=== PATIENT | male | born 1940 | race Caucasian/White ===

== ENCOUNTER → 2019-01-23 | Outpatient (CLI) | payer BC, MEDICARE ==
--- NOTE | 2019-01-23 13:49 | CT ---
EXAMINATION TYPE: CT chest w con DATE OF EXAM: 01/23/2019 COMPARISON: Chest x-ray 01/23/2019 from [facility] HISTORY: Mediastinal mass CT DLP: 356.30 mGycm, Automated exposure control for dose reduction was used. CONTRAST: Performed injected with 100 mL of Isovue 300. TECHNIQUE: Axial images were obtained at 5 mm thick sections. Reconstructed images are reviewed on [employer] computer in the coronal plane. FINDINGS: Portion of the thyroid visualized is normal. No suspicious lung nodules or focal infiltrates are present. There is a 1.2 cm pretracheal lymph node at the level of the aortic arch. Smaller lymphadenopathy is within the mediastinum. The ascending aorta diameter at the level of the main pulmonary artery is 3. 6 cm. The main pulmonary artery diameter at the bifurcation is 2.[address] sections are obtained through the upper abdomen. The entire stomach is herniated into the lower thoracic cavity. IMPRESSIONS: 1. Herniation of the entire stomach into the left lung base accounts for the findings on the chest x- ray from [facility]
== END ==
LOC: RADCTMAIN 11:41
PROVIDERS: ATTEND Internal Medicine Critical Care Medicine
DX: J98.59 Other diseases of mediastinum, not elsewhere classified (principal)
CPT/HCPCS: 82565; 84520; 71260; 36415; Q9967

== ENCOUNTER → 2019-06-25 | Outpatient (CLI) | payer MEDICARE ==
[2019-06-25 15:12] LABS: Basophils % (A) 1 %; Eosinophils # (A) 0.2 k/uL (0-0.7); Eosinophils % (A) 4 %; HCT 45.5 % (39.0-53.0); HGB 14.9 gm/dL (13.0-17.5); Lymphocytes # (A) 1.1 k/uL (1.0-4.8); Lymphocytes % (A) 23 %; MCH 30.4 pg (25.0-35.0); MCHC 32.8 g/dL (31.0-37.0); MCV 92.6 fL (80.0-100.0); Mean Platelet Volume 7.2; Monocytes # (A) 0.3 k/uL (0-1.0); Monocytes % (A) 7 %; Neutrophils % (A) 63 %; Platelet Count 164 k/uL (150-450); RBC 4.92 m/uL (4.30-5.90); RDW 15.1 % (11.5-15.5); WBC 4.7 k/uL (3.8-10.6)
== END | disposition home or self-care (01) ==
LOC: LABPAT 13:47
PROVIDERS: ATTEND Surgery
DX: Z01.812 Encounter for preprocedural laboratory examination (principal); Z01.818 Encounter for other preprocedural examination; K21.0 Gastro-esophageal reflux disease with esophagitis
CPT/HCPCS: 85025; 93005

== ENCOUNTER 2019-06-27 07:59 | Day surgery (SDC) | payer MEDICARE ==
[2019-06-26 11:47] VITALS: BMI 28.1
[2019-06-27] MEDS: LACTATED RINGERS 1,000 ML IV SCH ×2 (08:20→08:31)
[2019-06-27 08:25] VITALS: RESP 16; TEMP 97.3
[2019-06-27] MEDS ORDERED: LIDOCAINE 1% 20 ML VIAL (10MG/ML) FOR IV START INTRADERMA ONE (08:31)
[2019-06-27] MEDS ORDERED: PROPOFOL 10 MG/ML 20 ML VIAL IV ONE (08:56)
--- NOTE | 2019-06-27 08:57 | P.GSHP ---
History of Present Illness H&P Date: 06/27/19 Chief Complaint: GERD This a 79-year-old male who has a long-standing history of reflux and GERD. Patient has a large hiatal hernia with intrathoracic stomach. He presents today for EGD. Past Medical History Past Medical History: COPD, GERD/Reflux, Hyperlipidemia, Hypertension, Prostate Disorder Additional Past Medical History / Comment(s): intermittent difficulty with swallowing, unable to eat a full meal w/out regurgitation,hiatal hernia,hx enlarged prostate History of Any Multi-Drug Resistant Organisms: None Reported Additional Past Surgical History / Comment(s): metal chip removed from eye,nail removed from thumb Past Anesthesia/Blood Transfusion Reactions: No Reported Reaction Smoking Status: Former smoker - Past Family History Mother Family Medical History: No Reported History Sister(s) Family Medical History: Cancer Additional Family Medical History / Comment(s): lung Medications and Allergies Home Medications Medication Instructions Recorded Confirmed Type Aspirin 81 mg PO DAILY 06/26/19 06/26/19 History Atorvastatin [Lipitor] 20 mg PO DAILY 06/26/19 06/26/19 History Budesonide [Pulmicort] 0.5 mg INHALATION BID 06/26/19 06/26/19 History Calcium Carbonate/Vitamin D3 1 each PO DAILY 06/26/19 06/26/19 History [Calcium 500-Vit D3 200 Tablet] Cetirizine HCl [Zyrtec] 10 mg PO DAILY 06/26/19 06/26/19 History Felodipine ER [Plendil] 5 mg PO QAM 06/26/19 06/27/19 History Fluticasone Nasal [place] [Flonase 2 spr EA NOSTRIL DAILY 06/26/19 06/26/19 History Nasal [place]] Formoterol Fumarate [Perforomist] 20 mcg IH BID 06/26/19 06/26/19 History Ipratropium Nebulized [Atrovent 0.5 mg INHALATION BID 06/26/19 06/26/19 History Nebulized 0.2 MG/ML] Magnesium 250 mg PO DAILY 06/26/19 06/26/19 History Multivitamins, Thera [Multivitamin 1 tab PO DAILY 06/26/19 06/26/19 History (formulary)] Omeprazole [PriLOSEC] 20 mg PO DAILY 06/26/19 06/26/19 History Tamsulosin HCl [Flomax] 0.4 mg PO 1800 06/26/19 06/26/19 History Allergies Allergy/AdvReac Type Severity Reaction Status Date / Time No Known Allergies Allergy Verified 06/27/19 08:15 Surgical - Exam Vital Signs Temp Pulse Resp BP Pulse Ox 97.3 F L 74 16 140/72 93 L 06/27/19 08:24 06/27/19 08:24 06/27/19 08:24 06/27/19 08:24 06/27/19 08:24 - General well developed, well nourished, no distress - Eyes PERRL - ENT normal pinna - Neck no masses - Respiratory normal expansion - Cardiovascular Rhythm: regular - Abdomen Abdomen: soft, non tender Assessment and Plan Assessment: GERD Large hiatal hernia with intravenous stomach We'll perform EGD.
--- NOTE | 2019-06-27 09:13 | P.OP ---
Date of Procedure: 06/27/19 Preoperative Diagnosis: GERD Postoperative Diagnosis: Large hiatal hernia Antral gastritis Procedure(s) Performed: EGD Anesthesia: MAC Surgeon: Wilmer Carmona Pathology: other (Antrum) Condition: stable Disposition: PACU Description of Procedure: The patient's placed on the endoscopy table in the lateral position. He received IV sedation. The gastroscope placed oropharynx passed in the esophagus and into the stomach. The patient had a very large hiatal hernia.. The stomach was in the chest. The scope was then maneuvered into the antrum and then through the pylorus. The first portion duodenum appeared normal. Scope summer back and the antrum this above inflamed a biopsies performed. The scope was unretroflexed and the patient had a large hiatal hernia. The GE junction was at approximately 36 cm. The distal esophagus. Normal. The proximal esophagus.. Scope was withdrawn for patient.
[2019-06-27 09:38] VITALS: BP 117/75; PULSE 70
== END 2019-06-27 10:24 | disposition home or self-care (01) ==
LOC: ORWHC2ENDO 07:59
PROVIDERS: ATTEND Surgery
DX: K29.50 Unspecified chronic gastritis without bleeding (principal); K44.9 Diaphragmatic hernia without obstruction or gangrene; K21.9 Gastro-esophageal reflux disease without esophagitis; I10 Essential (primary) hypertension; J44.9 Chronic obstructive pulmonary disease, unspecified; E78.5 Hyperlipidemia, unspecified; N40.0 Benign prostatic hyperplasia without lower urinary tract symptoms; H91.90 Unspecified hearing loss, unspecified ear; Z87.891 Personal history of nicotine dependence; Z79.82 Long term (current) use of aspirin; Z79.899 Other long term (current) drug therapy; Z98.890 Other specified postprocedural states; Z80.1 Family history of malignant neoplasm of trachea, bronchus and lung
CPT/HCPCS: 88305; 43239; J2704

== ENCOUNTER 2019-07-02 08:42 | Day surgery (SDC) | payer MEDICARE ==
[~2019-07-02 08:42] MED LIST: DEXAMETHASONE SOD PHOSPHATE 10 MG/ML 1 ML VIAL IV ONE; HEPARIN SODIUM,PORCINE 5,000 UNIT/ML 1 ML VIAL SQ ONE; LIDOCAINE 1% 20 ML VIAL (10MG/ML) FOR IV START INTRADERMA PRN
[2019-07-02] MEDS: LACTATED RINGERS 1,000 ML IV SCH (09:44)
[2019-07-02] MEDS: ONDANSETRON 4 MG/2 ML VIAL IVP ONE ×2 (09:45→13:26)
--- NOTE | 2019-07-02 10:37 | P.GSHP ---
History of Present Illness H&P Date: 07/02/19 Chief Complaint: GERD, dysphagia This a 71-year-old male. Patient's complaints of GERD and dysphagia. Patient's found have extremely large hiatal hernia with intrathoracic stomach. He presents today for laparoscopic repair. Issues were surgery including conversion to the open procedure injury to the stomach liver spleen vagotomy dysphagia he is also aware the risk of shortened esophagus. Past Medical History Past Medical History: COPD, GERD/Reflux, Hyperlipidemia, Hypertension, Prostate Disorder Additional Past Medical History / Comment(s): intermittent difficulty with swallowing,unable to eat a full meal w/out regurgitation,hiatal hernia,hx enlarged prostate History of Any Multi-Drug Resistant Organisms: None Reported Additional Past Surgical History / Comment(s): metal chip removed from eye,nail removed from thumb Past Anesthesia/Blood Transfusion Reactions: No Reported Reaction Past Psychological History: No Psychological Hx Reported Smoking Status: Former smoker Past Alcohol Use History: Occasional Additional Past Alcohol Use History / Comment(s): started smoking at age 11,quit at age 43-3ppd Past Drug Use History: None Reported - Past Family History Mother Family Medical History: No Reported History Sister(s) Family Medical History: Cancer Additional Family Medical History / Comment(s): lung Medications and Allergies Home Medications Medication Instructions Recorded Confirmed Type Aspirin 81 mg PO DAILY 06/26/19 06/28/19 History Atorvastatin [Lipitor] 20 mg PO DAILY 06/26/19 06/28/19 History Budesonide [Pulmicort] 0.5 mg INHALATION BID 06/26/19 06/28/19 History Calcium Carbonate/Vitamin D3 1 each PO DAILY 06/26/19 06/28/19 History [Calcium 500-Vit D3 200 Tablet] Cetirizine HCl [Zyrtec] 10 mg PO DAILY 06/26/19 06/28/19 History Felodipine ER [Plendil] 10 mg PO QAM 06/26/19 06/28/19 History Fluticasone Nasal [place] [Flonase 2 spr EA NOSTRIL DAILY 06/26/19 06/28/19 History Nasal [place]] Formoterol Fumarate [Perforomist] 20 mcg IH BID 06/26/19 06/28/19 History Ipratropium Nebulized [Atrovent 0.5 mg INHALATION BID 06/26/19 06/28/19 History Nebulized 0.2 MG/ML] Magnesium 250 mg PO DAILY 06/26/19 06/28/19 History Multivitamins, Thera [Multivitamin 1 tab PO DAILY 06/26/19 06/28/19 History (formulary)] Omeprazole [PriLOSEC] 20 mg PO QAM 06/26/19 06/28/19 History Tamsulosin HCl [Flomax] 0.4 mg PO 1800 06/26/19 06/28/19 History Ferrous Sulfate [Iron] 325 mg PO DAILY 06/28/19 06/28/19 History Montelukast Sodium [Singulair] 10 mg PO HS 06/28/19 06/28/19 History Allergies Allergy/AdvReac Type Severity Reaction Status Date / Time No Known Allergies Allergy Verified 06/28/19 12:49 Surgical - Exam Vital Signs Temp Pulse Resp BP Pulse Ox 97.9 F 74 20 139/76 91 L 07/02/19 09:23 07/02/19 09:23 07/02/19 09:23 07/02/19 09:23 07/02/19 09:23 - General well developed, well nourished, no distress - Eyes PERRL - ENT normal pinna - Neck no masses - Respiratory normal expansion - Cardiovascular Rhythm: regular - Abdomen Abdomen: soft, non tender Assessment and Plan Assessment: Large hiatal hernia with intrathoracic stomach. Patient will undergo laparoscopic repair.
[2019-07-02] MEDS ORDERED: SUCCINYLCHOLINE CHLORIDE 100 MG/5 ML SYR IV ONE (11:14)
[2019-07-02] MEDS ORDERED: fentaNYL (PF) 50 MCG/ML 2 ML AMP ONE (11:14)
[2019-07-02] MEDS ORDERED: NEOSTIGMINE 1 MG/ML 10 ML VIAL ONE (11:14)
[2019-07-02] MEDS ORDERED: PROPOFOL 10 MG/ML 20 ML VIAL IV ONE (11:14)
[2019-07-02] MEDS ORDERED: LIDOCAINE 1% INJ 10MG/ML (20 ML MDV) ONE (11:14)
[2019-07-02] MEDS ORDERED: ROCURONIUM BROMIDE 10 MG/ML 10 ML VIAL IV ONE (11:14)
[2019-07-02] MEDS ORDERED: ePHEDrine SULFATE/0.9% NACL/PF 50 MG/5 ML SYRINGE IV ONE (11:14)
[2019-07-02] MEDS ORDERED: GLYCOPYRROLATE 0.2 MG/ML 2 ML VIAL ONE (11:14)
[2019-07-02] MEDS ORDERED: BUPIVACAIN-EPI 0.25%-1:200,000 30 ML VIAL SQ ONE (11:41)
[2019-07-02] MEDS ORDERED: LACTATED RINGERS 1,000 ML IV ONE (12:43)
[2019-07-02] MEDS ORDERED: HYDROmorphone 1 MG/ML 1 ML SYRINGE IVP PRN (13:01)
[2019-07-02] MEDS: HYDROmorphone 0.5 MG/0.5 ML SYRINGE IVP PRN ×4 (13:25→14:02)
[2019-07-02 15:25] LABS: Basophils % (A) 0 %; Eosinophils # (A) 0.1 k/uL (0-0.7); Eosinophils % (A) 1 %; HCT 47.6 % (39.0-53.0); HGB 15.6 gm/dL (13.0-17.5); Lymphocytes # (A) 0.5 k/uL (1.0-4.8); Lymphocytes % (A) 6 %; MCH 30.6 pg (25.0-35.0); MCHC 32.9 g/dL (31.0-37.0); MCV 93.1 fL (80.0-100.0); Mean Platelet Volume 7.2; Monocytes # (A) 0.2 k/uL (0-1.0); Monocytes % (A) 2 %; Neutrophils # (A) 7.9 k/uL (1.3-7.7); Neutrophils % (A) 91 %; Platelet Count 155 k/uL (150-450); RBC 5.11 m/uL (4.30-5.90); RDW 15.4 % (11.5-15.5); WBC 8.6 k/uL (3.8-10.6)
--- NOTE | 2019-07-02 15:57 | FL ---
EXAMINATION TYPE: FL esophagus cervic/pharynx DATE OF EXAM: 07/02/2019 LIMITED UGI-ESOPHAGRAM: CLINICAL HISTORY: Hiatal hernia per patient, Subhash fundoplication surgery earlier today TECHNIQUE: Limited esophagram is performed utilizing 50 oz of Isovue-370. A total of 74 seconds of f luoroscopic time was utilized during procedure. 14 spot images are saved. COMPARISON: Chest CT January 23, 2019 FINDINGS: The patient swallowed contrast without difficulty or delay. Esophageal peristalsis and mo tility are felt satisfactory. There is surgical change at the level of diaphragm with clips. There is no minimal contrast flow at site of surgical change into the stomach even after waiting nearly 7 min utes after patient initially swallowed contrast. Small amount of pneumoperitoneum noted below right h emidiaphragm consistent with history of surgery earlier today. Patient remained asymptomatic without increased nausea. IMPRESSION: Nondiagnostic study due to severe obstruction at surgical site. Advise repeat esophagram tomorrow morning.
[2019-07-02] MEDS: TAMSULOSIN 0.4 MG CAP.ER.24H PO SCH (16:37)
[2019-07-02] MEDS: METOCLOPRAMIDE 5 MG/ML 2 ML VIAL IVP SCH ×2 (17:35→23:48)
[2019-07-02] MEDS: D5-0.45% NACL WITH KCL 20MEQ/L 1,000 ML IV SCH (17:35)
[2019-07-02] MEDS: PANTOPRAZOLE 40 MG/10 ML VIAL IVP SCH (17:35)
[2019-07-02] MEDS: FORMOTEROL FUMARATE 20 MCG/2 ML NEBU INHALATION SCH (20:21)
[2019-07-02] MEDS: BUDESONIDE 0.5 MG/2 ML NEBU INHALATION SCH (20:21)
[2019-07-02] MEDS: IPRATROPIUM 0.5 MG/2.5 ML NEBU INHALATION SCH (20:21)
--- NOTE | 2019-07-02 22:16 | CONS ---
CONSULTATION DATE OF SERVICE: 07/02/2019. REASON FOR CONSULTATION: Advice regarding COPD and other medical issues requested by Dr. Carmona. HISTORY OF PRESENT ILLNESS: This 79-year-old gentleman with a past medical history of COPD, GERD, hypertension, hyperlipidemia, being followed by Dr. Castillo in the outpatient setting, had large hiatal hernia with intrathoracic stomach. The patient underwent laparoscopic repair by Dr. Carmona. Patient complaining of dysphagia. Patient being closely monitored at this time. PAST MEDICAL HISTORY: Past medical history of GERD, history of COPD, hypertension, hyperlipidemia, history of prostate disease, HOME MEDICATIONS: 1. Singulair 10 mg q.h.s. 2. Plendil 10 mg q.a.m. 3. Prilosec 20 mg daily. 4. Iron 320 mg. 5. Vitamin D3 1. 6. Multivitamins one p.o. daily. 7. Magnesium 250 mg. 8. Aspirin 81 mg daily. 9. Flomax 0.4 daily. 10.Atrovent 0.5 b.i.d. 11.Perforomist 20 mg b.i.d. 12.Flonase 2 sprays daily. 13.Zyrtec 10 mg daily. 14.Pulmicort 0.5 mg b.i.d. 15.Lipitor 20 mg p.o. q.h.s. ALLERGIES: None. FAMILY HISTORY: No history of heart disease or strokes in the family. SOCIAL HISTORY: Previous history of smoking. No history of current smoking or alcohol. REVIEW OF SYSTEMS: ENT: Diminished vision. Diminished hearing. CARDIOVASCULAR: No angina. No palpitations. RESPIRATION: As mentioned earlier. GASTROINTESTINAL: As mentioned earlier. : No dysuria. CENTRAL NERVOUS SYSTEM: No numbness or weakness. ALLERGY/IMMUNOLOGY: No asthma or hayfever. MUSCULOSKELETAL as mentioned earlier. HEMATOLOGY/ONCOLOGY: No history of anemia. ENDOCRINE: No history of diabetes or hypothyroidism. CONSTITUTIONAL: As mentioned earlier. DERMATOLOGY: Negative. RHEUMATOLOGY: Negative. PSYCHIATRY: As mentioned earlier. PHYSICAL EXAM: Patient is alert and oriented times three. Pulse 77, blood pressure 137/89, respiration 17, temperature 97.4, pulse ox 94% on 2 L. HEENT: Conjunctivae normal. NECK: No JVD. CARDIOVASCULAR: S1, S2 muffled. RESPIRATIONS: Breath sounds diminished in the bases. A few scattered rhonchi. No crackles. ABDOMEN: Soft. Mild diffuse discomfort on palpation. LEGS no edema, no swelling. NERVOUS SYSTEM: Higher functions as mentioned earlier. Moves all 4 limbs. No focal motor or sensory deficits. LYMPHATICS: No lymph nodes palpable in the neck, axillae or groin. SKIN: No ulcer, rash or bleeding. JOINTS: No active deforming arthropathy. LABS: At this time shows labs are CBC within normal limits. ASSESSMENT: 1. Status post laparoscopic Kimo fundoplication for hiatal hernia. 2. History of chronic obstructive pulmonary disease. 3. Gastroesophageal reflux disease. 4. Hyperlipidemia. 5. Hypertension. 6. History of prostate disorder. 7. Dysphagia. 8. Remote history of nicotine dependence. RECOMMENDATIONS AND DISCUSSION: In this 79-year-old gentleman who presented with multiple medical issues, at this time, I recommend to resume the home medications. DVT prophylaxis. Otherwise, proton pump inhibitors. Apparently the fluoroscopy was nondiagnostic due to severe obstruction in the surgical site. We will continue to monitor. Otherwise see orders for details. Further recommendations to follow. A copy of dictation being forwarded to Dr. Castillo who is the primary physician. Thank you Dr. Carmona for letting us participate in the care of this patient. MMODL / IJN: [id number] / JUDSON
[2019-07-03] MEDS: D5-0.45% NACL WITH KCL 20MEQ/L 1,000 ML IV SCH ×4 (00:55→23:08)
[2019-07-03] MEDS: METOCLOPRAMIDE 5 MG/ML 2 ML VIAL IVP SCH ×4 (05:42→23:11)
[2019-07-03] MEDS: FORMOTEROL FUMARATE 20 MCG/2 ML NEBU INHALATION SCH ×2 (07:10→18:23)
[2019-07-03] MEDS: IPRATROPIUM 0.5 MG/2.5 ML NEBU INHALATION SCH ×2 (07:11→18:23)
[2019-07-03] MEDS: BUDESONIDE 0.5 MG/2 ML NEBU INHALATION SCH ×2 (07:11→18:23)
[2019-07-03] MEDS: LACTATED RINGERS 1,000 ML IV SCH (07:52)
[2019-07-03] MEDS: LORATADINE 10 MG TAB PO SCH (07:53)
[2019-07-03] MEDS: ATORVASTATIN 20 MG TAB PO SCH (07:53)
[2019-07-03] MEDS: amLODIPine 10 MG TAB PO SCH (07:53)
[2019-07-03] MEDS: ENOXAPARIN 40 MG/0.4 ML SYRINGE SQ SCH ×2 (07:53→08:30)
[2019-07-03] MEDS: PANTOPRAZOLE 40 MG/10 ML VIAL IVP SCH (08:30)
[2019-07-03] MEDS: FLUTICASONE 50MCG/SPRAY NASAL 16GM EA NOSTRIL SCH (08:30)
[2019-07-03] MEDS ORDERED: DEXAMETHASONE SOD PHOSPHATE 4 MG/ML 1 ML VIAL IV PRN (09:22)
--- NOTE | 2019-07-03 09:36 | FL ---
SINGLE CONTRAST UPPER GI WITH ESOPHAGUS: CLINICAL HISTORY: 79-year-old male status post hiatal hernia repair, follow-up obstruction on yester day's exam. TECHNIQUE: Single contrast exam performed. The patient ingested a total of 25 mL Omnipaque 350 contr ast. Total fluoroscopy time: 1 minute 17 seconds. Total images: 17. COMPARISON: 07/02/2019 FINDINGS: The patient swallowed oral contrast without difficulty or delay. However, contrast was noted to stop at the level of the GE junction. Patient was instructed to dry sw allow and took 3 additional small swallows of contrast and after a period of time, a trace trickle of contrast passed into the stomach. Moderate tertiary peristaltic waves are demonstrated in the esopha rosalind with recurrent bouts of intraesophageal reflux. No evident extravasation of contrast on this limited assessment. We note small amount of postsurgical free air below the right hemidiaphragm. On the 10 minute post examination radiograph, approximately half of the contrast (approximately 1 oun ce) has managed to pass into the stomach. In addition, there is a round lucency projecting at the left base with adjacent patchy opacity IMPRESSION: 1. Persistent moderate to severe obstruction at the GE junction. After 10 minutes, only 1 ounce has p assed into the stomach. 2. Round air lucency projecting at the left base on the post procedure radiograph. This requires clin ical correlation to exclude any residual herniated contents. 3. Additional patchy left basilar opacity could represent underlying effusion or atelectasis. 4. Persistent small amount of postsurgical free air below the right hemidiaphragm.
[2019-07-03] MEDS ORDERED: DEXAMETHASONE SOD PHOSPHATE 4 MG/ML 1 ML VIAL IV SCH (10:15)
[2019-07-03 11:42] VITALS: BMI 26.3
[2019-07-03] MEDS ORDERED: hydrALAZINE HCL 20 MG/ML 1 ML VIAL IVP PRN (12:18)
--- NOTE | 2019-07-03 12:41 | PN ---
PROGRESS NOTE DATE OF SERVICE: 07/03/2019 This 79-year-old gentleman who was admitted after laparoscopic Kimo fundoplication is being closely monitored. The patient had some dysphagia. The upper GI done today showed some persistent moderate to severe obstruction. Surgery is following the patient closely. No chest pain. No palpitations. No fever. No shortness of breath. PHYSICAL EXAMINATION: On exam, alert and oriented x3. Pulse 76, blood pressure 168/89, respirations 16, temp 98.2, pulse ox 93% on room air. HEENT: Conjunctivae normal. NECK: No jugular venous distention. CARDIOVASCULAR: S1, S2 muffled. RESPIRATORY: Breath sounds diminished at the base. No rhonchi, no crackles. ABDOMEN: Mild diffuse distention. No guarding or rigidity. No mass palpable. Bowel sounds present. LEGS: No edema, no swelling. NERVOUS SYSTEM: No focal deficits. LABS: WBC 8.6, hemoglobin 15.6. ASSESSMENT: 1. Status post laparoscopic Kimo fundoplication for hiatal hernia. 2. Dysphagia. 3. Hypertension. 4. History of chronic obstructive pulmonary disease. 5. Gastroesophageal reflux disease. 6. Hyperlipidemia. 7. History of prostate disorder. 8. History of dysphagia. 9. Remote history of nicotine dependence. RECOMMENDATIONS AND DISCUSSION: Recommend to continue current medications, continue symptomatic treatment. I would also recommend parenteral hypertensive agents to monitor. Otherwise, once the patient is p.o. home medications can be continued. Otherwise continue with DVT prophylaxis and proton pump inhibitors. Further recommendations to follow. MMRUBEN / JOHNN: [id number] / MTDD
--- NOTE | 2019-07-03 14:46 | P.PN ---
Subjective Progress Note Date: 07/03/19 CHIEF COMPLAINT: Hiatal hernia HISTORY OF PRESENT ILLNESS: Patient is status post laparoscopic Kimo fundoplication secondary to large hiatal hernia with intrathoracic stomach. Esophagram completed yesterday was nondiagnostic secondary to severe obstruction at surgical site. Esophagram was repeated this morning revealing moderate to severe obstruction with 1 ounce of contrast passing through after 10 minutes. Vital signs stable. He is afebrile. PHYSICAL EXAM: VITAL SIGNS: Reviewed. GENERAL: Well-developed in no acute distress. HEENT: No sclera icterus. Extraocular movements grossly intact. Moist buccal mucosa. Head is atraumatic, normocephalic. ABDOMEN: Soft. Nondistended. Nontender. Laparoscopic incision sites clean dry and intact without drainage or signs of infection. NEUROLOGIC: Alert and oriented. Cranial nerves II through XII grossly intact. ASSESSMENT: 1. Large hiatal hernia with intrathoracic stomach, status post laparoscopic Kimo fundoplication PLAN: 1. NPO except ice chips. Continue IV fluids 2. Begin Decadron 4mg IV every 6 hours 3. Reglan 10mg IV q 6hours 4. Pain control 5. Incentive spirometry 6. Activity as tolerated 7. Repeat esophagram tomorrow morning Nurse practitioner note has been reviewed by physician. Signing provider agrees with the documented findings, assessment, and plan of care. Objective - Vital Signs Vital signs: Vital Signs Temp 97.8 F 07/03/19 05:16 Pulse 76 07/03/19 07:32 Resp 16 07/03/19 05:16 BP 166/77 07/03/19 05:16 Pulse Ox 93 L 07/03/19 05:16 Intake & Output 07/02/19 07/03/19 07/03/19 18:59 06:59 18:59 Intake Total 1050 1027.5 Output Total 5 Balance 1045 1027.5 Intake: IV 1050 Intake, IV Titration 437.5 Amount D5-0.45% NaCl with KCl 437.5 20Meq/l 1,000 ml @ 125 mls/hr IV .Q8H RODRIGO Rx#: [id number] Oral 590 Output: Estimated Blood Loss 5 Other: Voiding Method Toilet Toilet # Voids 4 - Labs CBC & Chem 7: 07/02/19 15:13 Labs: Abnormal Lab Results - Last 24 Hours (Table) 07/02/19 Range/Units 15:13 Neutrophils # 7.9 H (1.3-7.7) k/uL Lymphocytes # 0.5 L (1.0-4.8) k/uL
--- NOTE | 2019-07-03 15:59 | XR ---
EXAMINATION TYPE: XR chest 2V DATE OF EXAM: 07/03/2019 COMPARISON: Upper GI of the same date HISTORY: New onset shortness of breath TECHNIQUE: Frontal and lateral views of the chest are obtained. FINDINGS: There is no focal air space opacity, pleural effusion, or pneumothorax seen. Emphysematous changes are seen in the lungs with pulmonary hyperinflation and flattening of the diaphragms on the lateral view. The cardiac silhouette size is within normal limits. The osseous structures are intac t. Postsurgical changes seen at the gastroesophageal junction with persistent contrast in the distal esophagus distally narrowing. There is redemonstration of a round lucency in the retrocardiac airspac e. Postsurgical pneumoperitoneum. IMPRESSION: 1. There is persistent contrast in the distal esophagus secondary to the moderate to severe obstructi on at the gastroesophageal junction seen on the GI examination the same date. 2. Rounded lucency in the retrocardiac airspace can't be on the basis of diaphragmatic hernia with pr otrusion of the stomach, persistent hiatal hernia, or much less likely cavitary lesion of the lung. 3. Trace amount of postsurgical pneumoperitoneum deep to the right hemidiaphragm.
[2019-07-03] MEDS: TAMSULOSIN 0.4 MG CAP.ER.24H PO SCH (17:23)
[2019-07-03] MEDS: DEXAMETHASONE SOD PHOSPHATE 4 MG/ML 1 ML VIAL IV SCH ×2 (17:34→23:11)
[2019-07-03] MEDS ORDERED: MONTELUKAST 10 MG TAB PO SCH (21:00)
[2019-07-04] MEDS: DEXAMETHASONE SOD PHOSPHATE 4 MG/ML 1 ML VIAL IV SCH ×2 (06:14→12:47)
[2019-07-04] MEDS: D5-0.45% NACL WITH KCL 20MEQ/L 1,000 ML IV SCH ×2 (06:14→16:10)
[2019-07-04] MEDS: METOCLOPRAMIDE 5 MG/ML 2 ML VIAL IVP SCH ×2 (06:22→12:47)
[2019-07-04] MEDS: LACTATED RINGERS 1,000 ML IV SCH (07:49)
[2019-07-04] MEDS: ENOXAPARIN 40 MG/0.4 ML SYRINGE SQ SCH (07:57)
[2019-07-04] MEDS: PANTOPRAZOLE 40 MG/10 ML VIAL IVP SCH (07:58)
[2019-07-04] MEDS: amLODIPine 10 MG TAB PO SCH (07:58)
[2019-07-04] MEDS: FLUTICASONE 50MCG/SPRAY NASAL 16GM EA NOSTRIL SCH (07:58)
[2019-07-04] MEDS: ATORVASTATIN 20 MG TAB PO SCH (07:59)
[2019-07-04] MEDS: LORATADINE 10 MG TAB PO SCH (07:59)
[2019-07-04] MEDS: FORMOTEROL FUMARATE 20 MCG/2 ML NEBU INHALATION SCH (10:30)
[2019-07-04] MEDS: IPRATROPIUM 0.5 MG/2.5 ML NEBU INHALATION SCH (10:30)
[2019-07-04] MEDS: BUDESONIDE 0.5 MG/2 ML NEBU INHALATION SCH (10:30)
[2019-07-04 11:58] VITALS: BP 135/62; RESP 18; TEMP 98
[2019-07-04 12:17] VITALS: PULSE 96
--- NOTE | 2019-07-04 12:41 | FL ---
Single contrast esophagram EXAMINATION TYPE: FL UGI w esophagus DATE OF EXAM: 07/04/2019 12:30 PM COMPARISON: 07/02/2019 1 MIN 1 SEC FLUORO, 50 ML ISOVUE 370 UTILIZED 8 images CLINICAL HISTORY: Status post Subhash fundoplication Noted are changes of Subhash fundoplication. Compared to yesterday's exam there is much improved but p ersistent obstruction. Degree of obstruction at this time is considered mild. Contrast is noted to fl ow into the stomach. Residual contrast noted within the esophagus. No evidence for leak. IMPRESSION: Compared to yesterday's exam there is much improved but persistent obstruction. Degree o f obstruction at this time is considered mild.
--- NOTE | 2019-07-04 14:21 | P.DS ---
Providers Expected date of discharge: 07/04/19 Attending physician: Wilmer Carmona Consults: 07/02/19 13:01 Consult Physician Routine Consulting Provider: Jayro Jacome Consult Reason/Comments: Medical management Do you want consulting provider notified?: Yes [facility] Course: Patient is status post laparoscopic Kimo fundoplication secondary to large hiatal hernia with intrathoracic stomach. Postoperatively, the patient experienced an obstruction at the GE junction secondary to postoperative edema. He was placed on IV Decadron and IV Reglan. Most recent esophagram completed reveals obstruction is resolving and contrast is passing through into the stomach. Patient started on clear liquid diet. He is stable for discharge home today. Please see EMR for further hospital course details. Discharge Diagnosis: 1. Large hiatal hernia with intrathoracic stomach, status post laparoscopic Kimo fundoplication 2. Obstruction at GE junction secondary to postoperative edema, a potential outcome of surgery, resolving Nurse practitioner note has been reviewed by physician. Signing provider agrees with the documented findings, assessment, and plan of care. Patient Condition at Discharge: Stable Plan - Discharge Summary Discharge Rx Participant: Yes New Discharge Prescriptions: New Hydrocodone/Acetaminophen [[place] 5-325] 1 tab PO Q4HR PRN 3 Days #18 tab PRN Reason: Pain No Action Budesonide [Pulmicort] 0.5 mg INHALATION BID Ipratropium Nebulized [Atrovent Nebulized 0.2 MG/ML] 0.5 mg INHALATION BID Multivitamins, Thera [Multivitamin (formulary)] 1 tab PO DAILY Calcium Carbonate/Vitamin D3 [Calcium 500-Vit D3 200 Tablet] 1 each PO DAILY Aspirin 81 mg PO DAILY Omeprazole [PriLOSEC] 20 mg PO QAM Magnesium 250 mg PO DAILY Fluticasone Nasal [place] [Flonase Nasal [place]] 2 spr EA NOSTRIL DAILY Atorvastatin [Lipitor] 20 mg PO DAILY Tamsulosin HCl [Flomax] 0.4 mg PO 1800 Cetirizine HCl [Zyrtec] 10 mg PO DAILY Felodipine ER [Plendil] 10 mg PO QAM Formoterol Fumarate [Perforomist] 20 mcg IH BID Ferrous Sulfate [Iron] 325 mg PO DAILY Montelukast Sodium [Singulair] 10 mg PO HS Discharge Medication List Aspirin 81 mg PO DAILY 06/26/19 [History] Atorvastatin [Lipitor] 20 mg PO DAILY 06/26/19 [History] Budesonide [Pulmicort] 0.5 mg INHALATION BID 06/26/19 [History] Calcium Carbonate/Vitamin D3 [Calcium 500-Vit D3 200 Tablet] 1 each PO DAILY 06/26/19 [History] Cetirizine HCl [Zyrtec] 10 mg PO DAILY 06/26/19 [History] Felodipine ER [Plendil] 10 mg PO QAM 06/26/19 [History] Fluticasone Nasal [place] [Flonase Nasal [place]] 2 spr EA NOSTRIL DAILY 06/26/19 [History] Formoterol Fumarate [Perforomist] 20 mcg IH BID 06/26/19 [History] Ipratropium Nebulized [Atrovent Nebulized 0.2 MG/ML] 0.5 mg INHALATION BID 06/26/19 [History] Magnesium 250 mg PO DAILY 06/26/19 [History] Multivitamins, Thera [Multivitamin (formulary)] 1 tab PO DAILY 06/26/19 [History] Omeprazole [PriLOSEC] 20 mg PO QAM 06/26/19 [History] Tamsulosin HCl [Flomax] 0.4 mg PO 1800 06/26/19 [History] Ferrous Sulfate [Iron] 325 mg PO DAILY 06/28/19 [History] Montelukast Sodium [Singulair] 10 mg PO HS 06/28/19 [History] Hydrocodone/Acetaminophen [[place] 5-325] 1 tab PO Q4HR PRN 3 Days #18 tab 07/04/19 [Rx] Follow up Appointment(s)/Referral(s): Noe Castillo MD [Primary Care Provider] - 1 Week Wilmer Carmona MD [STAFF PHYSICIAN] - 1 Week Patient Instructions/Handouts: *Surgery [facility] - ([facility]) Lap Kimo Fundiplication Post-Op Instructions Activity/Diet/Wound Care/Special Instructions: No driving while taking [place] No lifting over 10 pounds You may shower. No soaking or tub baths Very light activity until you are reevaluated at your follow up appointment with your surgeon Full liquid diet for 2 weeks. No straws or carbonated beverages
--- NOTE | 2019-07-04 16:44 | PN ---
PROGRESS NOTE DATE OF SERVICE: 07/04/2019 This 79-year-old gentleman who was admitted after Kimo fundoplication is being closely monitored at this time. The patient has some dysphagia. Upper GI showed much improvement, but a persistent obstruction was noted. No chest pain. No palpitations. No fever. On exam, alert and oriented x3. Pulse is 60, blood pressure 130/60, respiration 18, temperature 98 degrees, pulse ox 93% on room air. HEENT: Conjunctivae normal. NECK: No jugular venous distention. CARDIOVASCULAR SYSTEM: S1, S2 muffled. RESPIRATORY SYSTEM: Breath sounds diminished at the bases. No rhonchi. No crackles. ABDOMEN: Soft. Status post surgery. LEGS: No edema. No swelling. NERVOUS SYSTEM: No focal deficit. LABS: Accu-Cheks are noted. ASSESSMENT: 1. Status post laparoscopic Kimo fundoplication for hiatal hernia. 2. Dysphagia. 3. Hypertension. 4. History of chronic obstructive pulmonary disease. 5. Gastroesophageal reflux disease. 6. Hyperlipidemia. 7. History of prostate disorder. 8. History of dysphagia. 9. Remote history of nicotine dependence. RECOMMENDATIONS AND DISCUSSION: I recommend to continue current medications, continue with the monitoring, symptomatic treatment, incentive spirometry, DVT prophylaxis. Otherwise, recommend to follow closely with Surgery. Further recommendations to follow. MMODL / IJN: [id number] /
--- NOTE | 2019-07-05 12:43 | P.OP ---
Date of Procedure: 07/02/19 Preoperative Diagnosis: Large hiatal hernia with intrathoracic stomach Postoperative Diagnosis: Same Procedure(s) Performed: Repair of large hiatal hernia with mesh, Kimo fundoplication Anesthesia: SHANNAN Surgeon: Wilmer Carmona Estimated Blood Loss (ml): 5 Pathology: none sent Condition: stable Disposition: PACU Description of Procedure: The patient was placed on the operating table in the supine position. She received general anesthesia. She was then placed in dorsal lithotomy position. Her abdomen was prepped and draped in the usual sterile fashion. The skin incision sites were anesthetized with 1% local Xylocaine. The skin was incised in the left periumbilical area with an 11 scalpel. Using a 5 mm blade was trocar under direct visitation the peritoneal cavity was entered. And then insufflated. After adequate insufflation the laparoscope was placed back into the peritoneal cavity. Next a 5 mm trocar was placed in the right epigastric and then the right lateral position. Another 5 mm trochars placed in the left lateral position. Another 5 mm trocar placed in the left epigastric position. And the original left periumbilical trocar was exchanged for a 10 mm trocar. The left lateral lobe liver was retracted. The patient had a large hiatal he rnia. Using the Harmonic scissors the crural defect was dissected in the Harmonic scissors were used to dissect the hiatal hernia sac. The hernia sac was completely dissected free from the thorax and then the stomach was reduced back into the peritoneal cavity. The fundus of the stomach was completely mobilized by using the Harmonic scissors to divide short gastric vessels. The stomach was reduced into the peritoneal cavity. The crura was dissected with the Harmonic scissors. And then the crural repair was performed using 2-0 Ethibond suture. The Fairlee bio A mesh was then placed over top of the repair and secured with 2-0 Ethibond suture. Next a 58-E[place]ian bougie dilator was placed the patient's oral pharynx and into the esophagus into the stomach by the CORE DIPPER. The fundoplication was then performed using 2-0 Ethibond suture. A 180 fundoplication was performed. At this point the dilator was withdrawn. The stomach and esophagus were inspected there is known to any injury to the stomach or esophagus. The abdomen was irrigated there is no bleeding seen. The trochars are withdrawn. Skin was closed interrupted 3-0 Monocryl suture. Dermabond was applied. Patient tolerated procedure well and was sent to recovery in stable condition.
== END 2019-07-04 17:20 | disposition home or self-care (01) ==
LOC: OR 08:42 → 3NMEDONC 12:48 → OR 07-04 17:20
PROVIDERS: ATTEND Surgery
DX: K44.9 Diaphragmatic hernia without obstruction or gangrene (principal); I10 Essential (primary) hypertension; E78.5 Hyperlipidemia, unspecified; J44.9 Chronic obstructive pulmonary disease, unspecified; K21.9 Gastro-esophageal reflux disease without esophagitis; N40.0 Benign prostatic hyperplasia without lower urinary tract symptoms; Z79.82 Long term (current) use of aspirin; Z79.51 Long term (current) use of inhaled steroids; Z79.899 Other long term (current) drug therapy; Z98.890 Other specified postprocedural states; Z87.891 Personal history of nicotine dependence
CPT/HCPCS: 43282; 94640 ×4; 86900; 86901; 85025; 86850; 74210; 74240 ×2; 71046; 36415; C1781; J0360; J1644; J1100 ×3; J2710; J2765 ×3; J0690; J2405; J2001; J1650 ×2; J3010; J0330; J2704; C9113 ×3; J1170; Q9967 ×3